=== PATIENT | female | born 1980 | race Caucasian/White ===

== ENCOUNTER 2023-07-07 09:44 | Outpatient (REF) | payer SELFPAY ==
[2023-07-07 11:32] LABS: MANUAL DIFF FLAG NO
[2023-07-07 11:40] LABS: Basophils Percent Auto 0.4 % (0-2); Eosinophils Percent Auto 0.3 % (0-4); Hematocrit 34.5 % (37.0-47.0); Hemoglobin 10.8 g/dl (12.0-16.0); Imm Gran Abs Auto 0.03 X10*3/uL (0.00-0.03); Imm Gran Pct Auto 0.4 % (0.0-0.4); Lymphocytes Absolute Auto 1.3 X10*3/uL (1.2-4.9); Lymphocytes Percent Auto 18.5 % (20-40); Mean Corpuscular HGB Conc 31.3 g/dl (31.0-35.0); Mean Corpuscular Hemoglobin 22.7 pg (27.0-33.0); Mean Corpuscular Volume 72.6 fL (80.0-98.0); Mean Platelet Volume 11.8 fL (9.4-12.3); Monocytes Absolute Auto 0.7 X10*3/uL (0.1-1.2); Monocytes Percent Auto 10.2 % (2-11); Neutrophils Absolute Auto 5.1 x10*3/uL (2.0-8.3); Neutrophils Percent Auto 70.2 % (45-73); Platelet Count 368 X10*3/uL (160-400); Red Blood Count 4.75 X10*6/uL (4.20-5.50); Red Cell Distribution Width 15.6 % (11.0-16.0); White Blood Count 7.3 X10*3/uL (4.8-10.8)
[2023-07-07 12:01] LABS: Alanine Aminotransferase 17 U/L (0-31); Albumin Level 4.1 g/dL (3.5-5.0); Alkaline Phosphatase 79 U/L (39-117); Anion Gap 13 (12-20); Aspartate Amino Transferase 17 U/L (5-31); Bilirubin Direct 0.2 mg/dL (0.0-0.5); Bilirubin Total 0.3 mg/dL (0.0-1.0); Blood Urea Nitrogen 12 mg/dL (9-16); Carbon Dioxide 20 mmol/L (22-29); Chloride 109 mmol/L (96-108); Cholesterol 160 mg/dL (<200); Estimated Glomerular Filt Rate > 60; Glucose Random 93 mg/dL (60-115); HDL Cholesterol 40 mg/dL (>40); LDL Cholesterol Calculated 111 mg/dL (<100); Potassium 3.7 mmol/L (3.3-5.1); Sodium 138 mmol/L (135-145); Triglycerides 49 mg/dL (<150)
[2023-07-07 12:05] LABS: ~HepC Num1 0.15 S/CO (0.00-0.79); ~Hepatitis C Antibody Nonreactive (Nonreactive)
[2023-07-07 12:38] LABS: Ferritin 7 ng/mL (10-250); TSH reflex Free T4 0.69 uIU/mL (0.32-4.0); Vitamin D 25-OH Total 31.1 ng/mL (>30)
[2023-07-07 12:47] LABS: Vitamin B12 414 pg/mL (200-900)
== END 2023-07-07 09:45 | disposition home or self-care (01) ==
LOC: HO.HHCL 09:44
PROVIDERS: Visit Provider Family Medicine
DX: Z11.59 Encounter for screening for other viral diseases (principal); Z13.6 Encounter for screening for cardiovascular disorders; G80.9 Cerebral palsy, unspecified; I47.19 Other supraventricular tachycardia; E55.9 Vitamin D deficiency, unspecified; D50.9 Iron deficiency anemia, unspecified
CPT/HCPCS: 36415; 80048; 80061; 80076; 82306; 82607; 82728; 83735; 84443; 85025; 86803

== ENCOUNTER → 2023-09-21 14:56 | Outpatient (BNVA) | payer OTHER, SELFPAY | PROVIDERS: PCP Family Medicine; Visit Provider Nurse Practitioner ==

== ENCOUNTER 2024-02-16 06:41 | Day surgery (SDC) | payer OTHER, SELFPAY ==
[2024-02-14 11:23] VITALS: BMI 25.3
--- NOTE | 2024-02-15 10:42 | HO.ANESPROP2 ---
HPI - Anesthesia Eval Consult details Narrative: 44yo F for Colonoscopy CP, wheelchair dependant PMFSH Active Problems Active Problems: All Active Problems Family history of polyps in the colon (Acute) Dysmenorrhea (Acute) Atrial tachycardia (Acute) Developmental delay, physiologic (Acute) Cerebral palsy (Acute) Hypertension (Acute) Pre-op examination (Acute) Past Medical History Medical History Wheelchair dependent Atrial tachycardia Developmental delay, physiologic HTN (hypertension) Cerebral palsy Family History Family History Paternal Uncle Colon cancer Family/Other Colon cancer Paternal Uncle Prostate cancer Paternal Aunt Breast cancer Father Adenomatous polyps Brother Polyp of colon Surgical History Surgical History No pertinent past surgical history Social History Social History Are you a primary home health care provider to a significant other at home: No Do you presently have visiting nurse or other home services: Yes (special education case manager/nurse) Alcohol intake: never Patient Tobacco Use Status: Never used Tobacco Meds Allergies Allergy/AdvReac Type Severity Reaction Status Date / Time No Known Allergies Allergy Verified 02/16/24 07:13 [No Known Allergies*] Home Medications ?Medication ?Instructions ?Recorded ?Confirmed ?Last Taken ?Type amlodipine 2.5 mg tablet 2.5 mg PO DAILY 09/21/23 02/16/24 Unknown History cholecalciferol (vitamin D3) 25 25 mcg PO DAILY 09/21/23 02/16/24 Unknown History mcg (1,000 unit) tablet ferrous sulfate 325 mg (65 mg 325 mg PO BID 09/21/23 02/16/24 Unknown History iron) tablet,delayed release lisinopril 10 mg tablet 10 mg PO DAILY 09/21/23 02/16/24 02/16/24 06:30 History Exam Height,Weight and Vital Signs: Height 5 ft 3 in Weight 64.864 kg Assessment and Plan Assessment Anesthesia Assessment: Chart Reviewed
[2024-02-16 07:16] VITALS: BP 138/60; PULSE 127; RESP 16; TEMP 37.3; O2SAT 100
--- NOTE | 2024-02-16 07:35 | HO.ANESPROP2 ---
[facility] Active Problems Active Problems: All Active Problems Family history of polyps in the colon (Acute) Dysmenorrhea (Acute) Atrial tachycardia (Acute) Developmental delay, physiologic (Acute) Cerebral palsy (Acute) Hypertension (Acute) Pre-op examination (Acute) Past Medical History Medical History Wheelchair dependent Atrial tachycardia Developmental delay, physiologic HTN (hypertension) Cerebral palsy Functional capacity: independent ambulation Patient : No Family History Family History Paternal Uncle Colon cancer Family/Other Colon cancer Paternal Uncle Prostate cancer Paternal Aunt Breast cancer Father Adenomatous polyps Brother Polyp of colon Family history of problems with anesthesia: No Surgical History Surgical History No pertinent past surgical history History of Problems with Anesthesia: No Social History Social History Are you a primary career and guidance counselor to a significant other at home: No Do you presently have visiting nurse or other home services: Yes (field case manager/nurse) Alcohol intake: never Patient Tobacco Use Status: Never used Tobacco Use of substances other than those prescribed or required for medical reasons: No Have you been hit, kicked, punched, or otherwise hurt by someone within the past year? If so, by whom?: No Spiritual Healthcare Practices: none Jehovah'S Witness Healthcare Practices: Restorationism Cultural Healthcare Practices: none Are you DNR?: No Advance Directives Information Provided: Yes (as above noted) Advance Directives on File: No Recently lost weight without trying: No Eating poorly because of decreased appetite: No Nutrition Risks: No Nutritional Risk Patient : No FDLMP: 01/21/24 : No Poor oral hygiene: No Meds Allergies Allergy/AdvReac Type Severity Reaction Status Date / Time No Known Allergies Allergy Verified 02/16/24 07:13 [No Known Allergies*] Active Medications: Current Medications Lactated Ringer's (Lr) 1,000 mls @ 100 mls/hr IVCONT .Q10H PRERNA Home Medications ?Medication ?Instructions ?Recorded ?Confirmed ?Last Taken ?Type amlodipine 2.5 mg tablet 2.5 mg PO DAILY 09/21/23 02/16/24 Unknown History cholecalciferol (vitamin D3) 25 25 mcg PO DAILY 09/21/23 02/16/24 Unknown History mcg (1,000 unit) tablet ferrous sulfate 325 mg (65 mg 325 mg PO BID 09/21/23 02/16/24 Unknown History iron) tablet,delayed release lisinopril 10 mg tablet 10 mg PO DAILY 09/21/23 02/16/24 02/16/24 06:30 History Exam Height,Weight and Vital Signs: Height 5 ft 3 in Weight 64.864 kg Last Vital Signs Temp 99.2 F 02/16/24 07:16 Pulse 127 H 02/16/24 07:16 Resp 16 02/16/24 07:16 BP 138/60 02/16/24 07:16 Pulse Ox 100 02/16/24 07:16 O2 Del Method Room Air 02/16/24 07:16 Airway Mallampati Class: I TM Dist: >3cm Neck ROM: Full Heart: RRR Lungs: CTA Assessment and Plan Assessment Anesthesia Assessment: Anesthesia Plan Discussed and Chart Reviewed Final Anesthetic Review Family History of Problems with Anesthesia: No History of Problems with Anesthesia: No NPO: Yes ASA Class: III Final Preanesthetic Review: Meds/Allgs Chart Reviewed, Consent Obtained/Reviewed and Anes Risks/Benef Reviewed Patient Risk: Intermediate Procedure Risk: Low Anesthetic Plan Anesthetic Plan: MAC: Disposition: Standard PACU
[2024-02-16] MEDS: Lactated Ringers 1,000 ML 100 ML IVCONT (07:47)
--- NOTE | 2024-02-16 08:16 | MHC.SHP ---
Pre-Procedural Eval Section A - 24 Hr Update-Section A only Date of Service: 02/16/24 Section B - Complete if H&P > 30 days Chief Complaint: screening Details of Present Illness: P.m. X Cerebral palsy Developmental delay - intelligence of 4 year old Dysmenorrhea Hypertension Dysmenorrhea Family history of colon cancer in her cousin and uncle Atrial tachycardia Allergies: Allergies Allergy/AdvReac Type Severity Reaction Status Date / Time No Known Allergies Allergy Verified 09/21/23 15:11 [No Known Allergies*] Review of Systems Review of Systems Comment: Ten point ROS negative Exam Exam Comment: Gen appear: No acute distress HEENT: no icterus Chest: No overt resp distress Abd: soft, nontender, nondistended Psych: Stable affect, answering questions appropriately Neuro: A/Ox3 noted to move all extremities spontaneously Ext: no peripheral edema Plan Diagnosis/Plan: Unchanged I have reviewed the history and physical and performed a pertinent physical examination on my patient. No changes have occurred unless specified. Consent was obtained from the patient's mother/guardian with the help of a trail construction worker Time Spent With Patient Time: Total time managing care of this patient today ____ minutes.
[2024-02-16 08:38] LABS: HCG Quantitative < 2 mIU/mL
--- NOTE | 2024-02-16 09:24 | P.OPN-COLO_ITS ---
Colonoscopy Operative Note Operative Note Date of Service: 02/16/24 Narrative: Procedure: Colonoscopy Indication: Screening, fam hx of polyps Endoscopist: Courtney Thomas MD Anesthesia Provider: Dr Cassidy Melgar Anesthesia type: MAC Instrument: Olympus [id number]-[id number] Consent: Indication, risks vs benefits, and alternatives were discussed with the patient's guardian (mother) who gave written informed consent to proceed. An electric meter inspector was utilized to assist with the consent. EKG, pulse, pulse oximetry and blood pressure were monitored throughout the procedure. Please see anesthesia flowsheet. Procedure: The patient was brought to the procedure room and placed in the left lateral decubitus position. IV medications were administered by the anesthesia provider in attendance. A digital rectal exam was performed which was normal. A distal attachment cap was affixed to the tip of the colonoscope which was then inserted through the anus and advanced through the colon to the cecum at 85 cm,and terminal ileum. Appendiceal orifice and ileocecal valve were identified. Mucosa was carefully examined under high definition white light as the instrument was slowly withdrawn in a retrograde panoramic fashion. Retroflexion was performed in rectum. The procedure was not difficult. There were no imme diate obvious complications. The quality of the prep was BBPS: 3+3+3 = excellent Withdrawal time 10 minutes. Limitations: No limitations. Findings: Mucosa: Left colon was quite redundant but cecum could be reached easily. Mucosa was normal to cecum and terminal ileum. Protruding lesions: * Medium internal hemorrhoids without stigmata of recent bleeding. Impression: 1. Normal colon and terminal ileum mucosa 2. Internal hemorrhoids Recommendations: - repeat colonoscopy for asymptomatic colorectal cancer screening in 10 years
[2024-02-16 09:25] VITALS: BP 90/40; PULSE 95; RESP 16; TEMP 37; O2SAT 96
[2024-02-16 09:40] VITALS: BP 105/59; PULSE 87; RESP 16; TEMP 36.8; O2SAT 100
--- NOTE | 2024-02-16 11:18 | HO.POSTANES ---
Post Anesthesia Evaluation Post Anesthesia Evaluation Date of Service: 02/16/24 Vital Signs: Vital Signs Temp Pulse Resp BP Pulse Ox O2 Del Method 02/16/24 09:40 98.2 F 87 16 105/59 L 100 Room Air 02/16/24 09:25 98.6 F 95 16 90/40 L 96 Room Air 02/16/24 07:16 99.2 F 127 H 16 138/60 100 Room Air Anesthesia: Monitored Mental Status: Awake Pain Control: Satisfactory Nausea/Vomiting: None Hydration: Adequate Anesthesia-Related Issues: No Anes. Related Issues
== END 2024-02-16 09:58 | disposition home or self-care (01) ==
PROVIDERS: Nurse Practitioner; PCP Family Medicine; Visit Provider Internal Medicine
PROC: 0DJD8ZZ Inspection of Lower Intestinal Tract, Via Natural or Artificial Opening Endoscopic (ICD-10-PCS; CPT 45378; principal; 2024-02-16 08:30)
DX: Z12.11 Encounter for screening for malignant neoplasm of colon (principal); K64.8 Other hemorrhoids; G80.9 Cerebral palsy, unspecified; F81.89 Other developmental disorders of scholastic skills; I10 Essential (primary) hypertension; I47.19 Other supraventricular tachycardia; N94.6 Dysmenorrhea, unspecified; Z99.3 Dependence on wheelchair
CPT/HCPCS: G0121; 36415; 84702; J2003; J2704

== ENCOUNTER → 2024-02-16 06:41 | Outpatient (BNV) | payer OTHER, SELFPAY | PROVIDERS: PCP Family Medicine; Visit Provider Internal Medicine | DX: Z12.11 Encounter for screening for malignant neoplasm of colon (principal); Z83.719 Family history of colon polyps, unspecified; K64.8 Other hemorrhoids | CPT/HCPCS: G0105 ==

== ENCOUNTER 2024-03-01 08:32 | Outpatient (AMB) | payer OTHER, SELFPAY ==
--- NOTE | 2024-03-01 08:42 | A.OFFVIS_ITS ---
Vital Signs 03/01/24 08:46 Height 5 ft 3 in Weight 143 lb BMI 25.3 BP 155/86 H Blood Pressure Location Lt brachial Position Sitting Intake Visit Reasons: s/p colon Intake Note: Patient in office today in follow up of colonoscopy. CC: Patient reports doing well and denies having any GI symptoms today. Land Development Project Manager Required: Yes Accompanied by: Self / Same As Patient Allergies No Known Allergies [No Known Allergies*] Allergy (Verified 03/01/24 09:13) HPI HPI s/p colon: Details: Assessment & Plan (1) Pre-op examination: Code(s): Z01.818 - Encounter for other preprocedural examination Category: Medical (2) Family history of polyps in the colon: Comment: Father Code(s): Z83.719 - Family history of colon polyps, unspecified Category: Medical Plan Mongolian # family member translates per pt request. She is here today with 2 female family members who are supportive. This will be her first colonoscopy. She is naive to anesthesia and sedation. They deny respiratory or cardiac problems. Her father had colon polyps Family history of colon cancer in her cousin and uncle Orders: Orders Colonoscopy - GI Use Only 09/21/23 Medications: New peg 3350-electrolytes 236-22.74-6.74 -5.86 gram (Golytely) until fecal effluent is clear; do not exceed a total volume of 2,000 mL 240 mL PO Q10M 4,000 mL 0RF 1 day Z12.11 - Encounter for screening for malignant neoplasm of colon bisacodyl (Dulcolax (bisacodyl)) 10 mg (2 x 5 mg) PO BEDTIME 4 tabs 0RF 2 days COLONOSCOPY 02/16/24 Findings: Mucosa: Left colon was quite redundant but cecum could be reached easily. Mucosa was normal to cecum and terminal ileum. Protruding lesions: * Medium internal hemorrhoids without stigmata of recent bleeding. Impression: 1. Normal colon and terminal ileum mucosa 2. Internal hemorrhoids Recommendations: - repeat colonoscopy for asymptomatic colorectal cancer screening in 10 years TODAY'S VISIT [place] [employer] The procedure needs to be repeated in 5 years due to the family history of colon polyps. The procedure was well tolerated. The results were explained and the patient is agreeable to the follow-up interval as stated. The bowel pattern has returned to normal. Education was provided to tell any 1st degree relatives about their findings to be sure that they are screened by age 45. Educated that they will be put on a recall list when it is time for their repeat scope but should they move out of state or away from the hospital they will need to remember along with their primary to repeat the procedure in a timely fashion to avoid any adverse complications. [facility] Medical History (Updated 03/01/24 @ 09:22 by LOBO Bryson) Wheelchair dependent Atrial tachycardia Developmental delay, physiologic HTN (hypertension) Cerebral palsy Surgical History (Updated 03/01/24 @ 08:47 by ANSHU Olivier) H/O colonoscopy Family History Paternal Uncle Colon cancer Family/Other Colon cancer Paternal Uncle Prostate cancer Paternal Aunt Breast cancer Father Adenomatous polyps Brother Polyp of colon Social History Are you a primary women's health care nurse practitioner to a significant other at home: No Do you presently have visiting nurse or other home services: Yes (dependency case manager/nurse) Alcohol intake: never Patient Tobacco Use Status: Never used Tobacco Review of Systems Const Denies fatigue, Denies fever(s), Denies night sweats, Denies poor appetite and Denies weight loss Eyes Reports requires corrective lenses ENT Reports Normal hearing present, Denies dental pain, Denies dysphagia, Denies hearing loss, Denies mouth pain, Denies odynophagia, Denies throat swelling, D enies tongue swelling and Reports other (Dentition adequate) GI Details: Denies abdominal pain, Denies melena, Denies bloating, Denies hematochezia, Denies constipation, Denies GI cramping, Denies dysphagia, Denies excessive flatus, Denies early satiety, Denies heartburn, Denies diarrhea, Denies nausea, Denies odynophagia, Denies vomiting and Denies hematemesis Skin/Breast Denies pruritus, Denies lesions, Denies rash and Denies jaundice Neuro Reports Normal hearing present and Denies Abnormal speech present Endo Denies fatigue Aller/Immun Denies throat swelling and Denies tongue swelling Physical Exam Vital Signs: Last Vital Signs BP 155/86 H 03/01/24 08:46 BMI result Body Mass Index 25.3 Const General: cooperative, no acute distress, well developed and well groomed Nutritional Appearance: well nourished and overweight Orientation/consciousness: oriented to person, oriented to place and oriented to time Limitations: language barrier, physical limitations, wheelchair and other limitations HEENT Head: Yes normocephalic and Yes atraumatic Eyes General: appearance normal, both eyes and all related structures Pupils: Equal, round and reactive pupils present Neck Neck: Yes normal visual inspection and Yes no lymphadenopathy Thyroid: Thyroid normal Resp Effort & Inspection: normal respiratory effort and able to speak in complete sentences Auscultation: clear to auscultation bilaterally Cardio Rate: regular rate Rhythm: regular rhythm Heart sounds: Normal, physiologic split S2 sound present Peripheral pulses: radial pulses present and posterior tibial pulses present GI Inspection: No distended and No Abdominal panniculus present Palpation (GI): Soft to palpation, nontender, no guarding, not rigid and No hepatosplenomegaly present Percussion: Yes normal to percussion Auscultation: normal bowel sounds Rectal Exam - Female: deferred Skin General skin exam: no rashes or lesions noted, turgor normal, skin not dry, no jaundice, No spider nevi and no striae Rashes: no rashes Nails: normal Neuro General: oriented to person, oriented to place and oriented to time Cranial nerves: Yes Equal, round and reactive pupils present and Yes Normal hearing present Speech: No Abnormal speech present Extrem General: Yes normal to inspection, No clubbing, No cyanosis and No edema Psych Appearance: grossly normal and well kempt Mental Status: mental status grossly normal Speech and movement: Normal speech and movement present Affect: normal affect Attitude: cooperative Thought process: Normal thought process present and not confabulating Thought content: Normal thought content present Insight: Limited insight present (Psych) Judgement: Limited judgement present (Psych) Assessment & Plan Assessment & Plan (1) Family history of polyps in the colon: Comment: Father 01/2024 scope= negative exam repeat 5 years Code(s): Z83.719 - Family history of colon polyps, unspecified Category: Medical Plan [place] [employer] The procedure needs to be repeated in 5 years due to the family history of colon polyps. The procedure was well tolerated. The results were explained and the patient is agreeable to the follow-up interval as stated. The bowel pattern has returned to normal. Education was provided to tell any 1st degree relatives about their findings to be sure that they are screened by age 45. Educated that they will be put on a recall list when it is time for their repeat scope but should they move out of state or away from the hospital they will need to remember along with their primary to repeat the procedure in a timely fashion to avoid any adverse complications. Coding Level of Care Code Est Pt Level 3 (60338) Diagnoses Family history of polyps in the colon Z83.719
[2024-03-01 08:46] VITALS: BP 155/86; BMI 25.3
== END 2024-03-01 09:14 | disposition home or self-care (01) ==
LOC: HO.HGI 08:33
PROVIDERS: PCP Family Medicine; Visit Provider Nurse Practitioner
DX: Z83.719 Family history of colon polyps, unspecified (principal)
CPT/HCPCS: 99213

== ENCOUNTER → 2024-03-01 08:32 | Outpatient (BNVA) | payer OTHER, SELFPAY | PROVIDERS: PCP Family Medicine; Visit Provider Nurse Practitioner | DX: K64.8 Other hemorrhoids (principal); Z83.719 Family history of colon polyps, unspecified | CPT/HCPCS: 99212 ==

== ENCOUNTER 2024-07-16 09:29 | Outpatient (REF) | payer OTHER, SELFPAY ==
[2024-07-16 11:44] LABS: MANUAL DIFF FLAG NO
[2024-07-16 11:57] LABS: Basophils Percent Auto 0.3 % (0-2); Eosinophils Absolute Auto 0.1 X10*3/uL (0.0-0.4); Eosinophils Percent Auto 0.6 % (0-4); Hematocrit 34.1 % (37.0-47.0); Hemoglobin 10.7 g/dl (12.0-16.0); Imm Gran Abs Auto 0.03 X10*3/uL (0.00-0.03); Imm Gran Pct Auto 0.4 % (0.0-0.4); Lymphocytes Absolute Auto 1.7 X10*3/uL (1.2-4.9); Lymphocytes Percent Auto 21.4 % (20-40); Mean Corpuscular HGB Conc 31.4 g/dl (31.0-35.0); Mean Corpuscular Hemoglobin 23.4 pg (27.0-33.0); Mean Corpuscular Volume 74.6 fL (80.0-98.0); Mean Platelet Volume 12.9 fL (9.4-12.3); Monocytes Absolute Auto 0.9 X10*3/uL (0.1-1.2); Monocytes Percent Auto 11.3 % (2-11); Neutrophils Absolute Auto 5.3 x10*3/uL (2.0-8.3); Platelet Count 391 X10*3/uL (160-400); Red Blood Count 4.57 X10*6/uL (4.20-5.50); Red Cell Distribution Width 16.1 % (11.0-16.0)
[2024-07-16 12:28] LABS: Alanine Aminotransferase 18 U/L (0-31); Albumin Level 4.1 g/dL (3.5-5.0); Alkaline Phosphatase 77 U/L (39-117); Anion Gap 9 (12-20); Aspartate Amino Transferase 22 U/L (5-31); Bilirubin Direct < 0.2 mg/dL (0.0-0.5); Bilirubin Total 0.2 mg/dL (0.0-1.0); Blood Urea Nitrogen 13 mg/dL (9-16); Calcium 8.8 mg/dL (8.4-10.2); Carbon Dioxide 23 mmol/L (22-29); Chloride 109 mmol/L (96-108); Cholesterol 164 mg/dL (<200); Estimated Glomerular Filt Rate > 60; Glucose Random 90 mg/dL (60-115); HDL Cholesterol 39 mg/dL (>40); Iron 13 mcg/dL (30-160); LDL Cholesterol Calculated 110 mg/dL (<100); Percent Iron Saturation 4 % (15-50); Potassium 3.9 mmol/L (3.3-5.1); Sodium 137 mmol/L (135-145); Total Iron Binding Capacity 334 mcg/dL (228-428); Total Protein 7.8 g/dL (6.5-8.0); Triglycerides 79 mg/dL (<150); Unsaturated Iron Binding 321 ug/dL
[2024-07-16 12:31] LABS: Ferritin 5 ng/mL (10-250); TSH reflex Free T4 0.99 uIU/mL (0.32-4.0); Vitamin D 25-OH Total 34.8 ng/mL (>30)
[2024-07-16 12:45] LABS: Folate 14.8 ng/mL (> or = 4.0); Vitamin B12 400 pg/mL (200-900)
== END 2024-07-16 09:30 | disposition home or self-care (01) ==
LOC: HO.HHCL 09:29
PROVIDERS: Visit Provider Family Medicine
DX: E61.1 Iron deficiency (principal); E78.5 Hyperlipidemia, unspecified; I10 Essential (primary) hypertension; E55.9 Vitamin D deficiency, unspecified
CPT/HCPCS: 36415; 80048; 80061; 80076; 82306; 82607; 82728; 82746; 83540; 84443; 85025

== ENCOUNTER 2024-08-29 09:03 | Outpatient (REF) | payer OTHER, SELFPAY ==
--- OUTSIDE RECORDS SUMMARY | 2024-08-29 09:33 | XMS_ITS | Encounter Summary ---
Author Organization [employer] Address [address] [facility] [address] [place] [address] Care Team Providers Care Clean Up Supervisor Name Role Phone Silvia Sanchez MD Primary Care Provider [phone] Juliette Dai CAMP HOUSEKEEPER Unavailable [phone] Encounter Details Date Type Department Care Team (Late st Contact Info) Description 10/31/2023 Orders Only [facility] [address] [place], [place] [id number] Silvia Sanchez MD [address] [place], [place] [phone] Iron deficiency (Primary Dx) Social History Tobacco Use Types Packs/Day Years Used Date Smoking Tobacco: Never Smokeless Tobacco: Never Alcohol Use Standard Drinks/Week Comments Never 0 (1 standard drink = 0.6 oz pur e alcohol) Housing Stability Answer Date Recorded What is your housing situation today? I have bing reaves 06/28/[address] you li ve. Do you have problems with any of the following? None of the above 06/28/2023 Food Insecurity Answer Date Recorded Within the past 12 months, y ou worried that your food would run out before you got money to buy more: Never True 06/28/2023 Within the past 12 months,th e food you bought just didn't last and you didn't have enough money to get more: Never True 08/2023 Transportation Answer Date Recorded In the past 12 months, has l ack of transportation kept you from medical appts, meetings, work or from getting things needed for daily living? No 06/28/2023 Utilities Answer Date Recorded In the past 12 months, has t he electric, gas, oil or water company threatened to shut off services in your home? No 06/28/2023 Comments Unknown Sex and Gender Information Value Date Recorded Sex Assigned at Female 02/22/2022 10:18 AM EDT Legal Sex Female 10:18 AM EDT Gender Identity Female 02/22/2022 10:18 AM EDT Sexual Orientation Straight 02/22/2022 10 :18 AM EDT documented as of this encounter Plan of Treatment Scheduled Orders Name Type Priority Associated Diagnoses Orde r Schedule CBC auto differential Lab Routine Iron deficiency Expected: 10/31/2023, Expires: 10/30/2024 documented as of this encounter Procedures Procedure Name Priority Date/Time Associated Diagnosis Comments IRON AND TOTAL IRON BINDING CAPACITY Routine 07/16/2024 9:37 AM EDT Iron deficiency documented in this encounter Results * (ABNORMAL) Iron And Total Iron Binding Capacity (07/16/2024 9:37 AM EDT) Iron 13(L) 30 - 160 mcg/dL [facility] Total Iron Binding Capacity 334 228 - 428 mcg/dL [facility] Percent Iron Saturation 4(L) 15 - 50 % [facility] Unsaturated Iron Binding 321 ug/dL [facility] Blood Venous blood specimen / Unknown 07/16/2024 9:37 AM EDT 07/16/2024 11:36 AM EDT us Silvia Sanchez MD LAB BLOOD ORDERABLES Final Result Performing Organization Address City/State/RUST Co de Phone Number [facility] [address] [place] [phone] documented in this encounter Visit Diagnoses Diagnosis Iron deficiency- Primary Disorders of iron metabolism documented in this encounter Care Teams Clean Up Supervisor Relationship Specialty Start Date End Date Silvia Sanchez MD [address] [place] [id number] PCP - General Family Medicine 04/25/18 Juliette Dai CNP [address] [facility] [address] [place] [address] Breast Surgery 07/09/24 documented as of this encounter
--- OUTSIDE RECORDS SUMMARY | 2024-08-29 09:33 | XMS_ITS | Encounter Summary ---
Author Organization [employer] Address [address] [facility] [address] [place] [address] Care Team Providers Care Tower Watchman Name Role Phone Silvia Sanchez MD Primary Care Provider [phone] Juliette Dai COTTON CLEANER Unavailable [phone] Encounter Details Date Type Department Care Team (Late st Contact Info) Description 05/27/2022 Abstract [facility] [address] [place] [address] Silvia Sanchez MD [address] [place] [address] Social History Tobacco Use Types Packs/Day Years Used Date Smoking Tobacco: Never Assessed Comments Unknown Sex and Gender Information Value Date Recorded Sex Assigned at Female 02/22/2022 10:18 AM EDT Legal Sex Female 10:18 AM EDT Gender Identity Female 02/22/2022 10:18 AM EDT Sexual Orientation Straight 02/22/2022 10 :18 AM EDT documented as of this encounter Plan of Treatment Not on file documented as of this encounter Procedures Procedure Name Priority Date/Time Associated Diagnosis Comments HPV HIGH RISK PCR Routine 1978 12:00 AM EDT documented in this encounter Results * HPV High Risk PCR (1978 12:00 AM EDT) Swab Cervical swab / Unknown us Historical Provider LAB MICROBIOLOGY - GENERA L ORDERABLES Final Result IMAGING documented in this encounter Visit Diagnoses Not on filedocumented in this encounter Care Teams Tower Watchman Relationship Specialty Start Date End Date Silvia Sanchez MD [address] [place] [address] PCP - General Family Medicine 04/25/18 Juliette Dai CNP [address] [facility] [address] [place] [id number] Breast Surgery 07/09/24 documented as of this encounter
--- OUTSIDE RECORDS SUMMARY | 2024-08-29 09:33 | XMS_ITS | Clinical Summary ---
Author Organization [email or web address] Address [address] [facility] [address] [place] [address] Care Team Providers Care Payroll Auditor Name Role Phone Silvia Sanchez MD Primary Care Provider [phone] Juliette Dai BARREL WASHER MACHINE Unavailable [phone] Allergies No known active allergies Medications amLODIPine (Norvasc) 2.5 MG tabletIndications: Primary hypertension TAKE 1 TABLET BY MOUTH EVERY MORNING 90 tablet 3 4 Active cholecalciferol 25 MCG (1000 UT) tabletIndications: Vitamin D deficiency TAKE 1 TABLET BY MOUTH ONCE DAILY 90 tablet 3 4 Active lisinopril 10 MG tabletIndications: Primary hypertension TAKE 1 TABLET BY MOUTH EVERY MORNING 90 tablet 3 4 Active ferrous sulfate (Fe Tabs) 325 (65 Fe) MG EC tabletIndications: Anemia, unspecified type Take one tab po bid Do not crush, chew, or split. 60 tablet 3 4 Active Bisacodyl EC 5 MG EC tabletIndications: Constipation, unspecified constipation type TAKE 2 TABLETS BY MOUTH EVERY DAY AT BEDTIME FOR 2 DAYS 4 Active PEG [id number]-NaC l-NaSulf (PEG-3350/Electrol ytes) 236 g reconstituted solutionIndication s:Constipation, unspecified constipation type MIX WITH WATER DIRECTED AND DRINK 240 ML BY MOUTH EVERY 10 MINUTES UNTIL FECAL EFFLUENT IS CLEAR, DO NOT EXCEED 2,000 ML (1/2 BOTTLE) 4 Active ferrous sulfate (Fe Tabs) 325 (65 Fe) MG EC tabletIndications: Iron deficiency Take one tab po daily 30 tablet 1 5 Active Active Problems Patient Care Coordination No te Formatting of this note migh t be different from the original. [facility] Crutch Maker: Johana, member services number [phone], provider services line, , option 4 Senior Editor Agency: [employer] Problem Noted Date Diagnosed Date Constipation 07/05/2024 Iron deficiency anemia 07/05/2024 Overview (07/05/2024): Lab Results Component Value Date FERRITIN 7 (L) 07/07/2023 HGB 10.8 (L) 07/07/2023 Coordination of complex care 11/23/2023 Overview (11/23/2023): Pt enrolled in [facility]. Mother: Isadora Devries Manager Technical Sales: Ridleyjose Manjarrez [phone] RN: Laura Barron [phone] Assessment & Plan (07/05/2024 2:30 PM EDT): Pt enrolled in [facility]. Mother: Isadora Devries Manager Technical Sales: Keyana Manjarrez [phone] RN: Laura Barron [phone] Encounter for screening for malignant neoplasm o f breast 07/07/2023 Overview (07/09/2024): Due to inability to get Mammogram due to cerebral palsy, we referred to Breast clinic for recommendation. Seen 08/01/23 at [facility] breast center. Tyrer-Cuzick model 18% which is average risk. Breast exam normal. Options discussed and pt will trial whole breast screening ultrasound. -Breast US normal 11/03/23, filed in media Assessment & Plan (07/05/2024 2:31 PM EDT): Due to inability to get Mammogram due to cerebral palsy, we referred to Breast clinic for recommendation. Seen 08/01/23 at [facility] breast center. Tyrer-Cuzick model 18% which is average risk. Breast exam normal. Options discussed and pt will trial whole breast screening ultrasound. -Breast US normal Assessment & Plan (08/04/2023 10:20 AM EDT): Due to inability to get Mammogram due to cerebral palsy, we referred to Breast clinic for recommendation. Seen 08/01/23 at [facility] breast center. Tyrer-Cuzick model 18% which is average risk. Breast exam normal. Options discussed and pt will trial whole breast screening ultrasound. If normal repeat on annual basis. Assessment & Plan (07/07/2023 9:16 AM EDT): Due to inability to get Mammogram due to cerebral palsy, we will refer to Breast clinic for recommendation 07/07/2023 Colon cancer screening 06/01/2023 Overview (07/05/2024): -colonoscopy with [facility] 02/16/24 normal. Repeat in 4-5 years due to family history of polyps Assessment & Plan (07/05/2024 2:30 PM EDT): -colonoscopy with [facility] 02/16/24 normal. Repeat in 4-5 years due to family history of polyps Assessment & Plan (08/04/2023 10:14 AM EDT): -pt due for screening. - Referral to GI done 07/07/23 -number given on 08/04/23 Assessment & Plan (07/07/2023 9:17 AM EDT): -pt due for screening -Referral to GI done 07/07/23 Other specified health status 02/21/2023 Overview (07/05/2024): -next physical exam due after 07/05/25 -eye care facilitated by [facility] -dental home is [facility] -pt was unable to tolerate pap, denies hx sexual activity -Healthcare proxy paperwork completed by the patient 07/07/23 Assessment & Plan (07/05/2024 2:31 PM EDT): -next physical exam due after 07/05/25 -[facility] -dental home is [facility] -pt was unable to tolerate pap, denies hx sexual activity -Healthcare proxy paperwork completed by the patient 07/07/23 Assessment & Plan (08/04/2023 10:20 AM EDT): -next physical exam due after 07/06/2024 -eye care facilitated by [facility] -dental home is [facility] -pt was unable to tolerate pap, denies hx sexual activity - Healthcare proxy paperwork completed by the patient 07/07/23 Assessment & Plan (07/07/2023 9:18 AM EDT): -next physical exam due after 07/06/2024 -eye care facilitated by [facility] -dental home is [facility] -pt was unable to tolerate pap, denies hx sexual activity - Healthcare proxy paperwork completed by the patient 07/07/23 Essential hypertension 11/03/2021 3 Overview (08/04/2023): -Blood pressure is not at goal -Continue lifestyle modifications -Continue current medications - Advised pt to monitor BP and keep a diary of recordings. Will follow up in two weeks via televisit. -BP is well controlled with current medication Assessment & Plan (07/05/2024 2:30 PM EDT): -Blood pressure is not at goal -Continue lifestyle modifications -Continue current medications - Advised pt to monitor BP and keep a diary of recordings. Will follow up in two weeks via televisit. -BP is well controlled with current medication Assessment & Plan (08/04/2023 10:19 AM EDT): -Blood pressure is not at goal -Continue lifestyle modifications -Continue current medications - Advised pt to monitor BP and keep a diary of recordings. Will follow up in two weeks via televisit. -BP is well controlled with current medication Assessment & Plan (07/07/2023 9:46 AM EDT): -Blood pressure is not at goal -Continue lifestyle modifications -Continue current medications - Advised pt to monitor BP and keep a diary of recordings. Will follow up in two weeks via televisit. Iron deficiency 11/03/2021 02/21/2023 Overview (07/16/2024): Lab Results Component Value Date FERRITIN 5 (L) 07/16/2024 FERRITIN 7 (L) 07/07/2023 HGB 10.7 (L) 07/16/2024 HGB 10.8 (L) 07/07/2023 -ferrous sulfate restarted 07/16/24 Vitamin D deficiency 11/03/2021 02/21/2023 Overview (07/05/2024): Lab Results Component Value Date [id number] 31.1 07/07/2023 Assessment & Plan (07/05/2024 2:30 PM EDT): Lab Results Component Value Date [id number] 31.1 07/07/2023 Cerebral palsy 12/07/2012 02/21/2023 Overview (08/04/2023): -she is wheelchair bound Assessment & Plan (07/05/2024 2:30 PM EDT): -she is wheelchair bound Assessment & Plan (08/04/2023 10:19 AM EDT): -she is wheelchair bound Developmental delay 12/07/2012 02/21/2023 Dysmenorrhea 12/07/2012 02/21/2023 Overview (07/07/2023): -Improved -Will continue to monitor Assessment & Plan (08/04/2023 10:20 AM EDT): -Improved -Will continue to monitor Assessment & Plan (07/07/2023 9:17 AM EDT): -Improved -Will continue to monitor Tooth disorder 12/07/2012 02/21/2023 Wheelchair bound 12/07/2012 02/21/2023 Encounters Date Type Department Care Team Description 07/23/2024 Abstract [facility] [place] [address] Silvia Sanchez MD 07/17/20[address] [facility] [place] [address] Silvia Sanchez MD Results 07/16/[address] [address] Silvia Sanchez MD 07/16/2024 Orders Only [address] [address] Silvia Sanchez MD Iron deficiency (Primary Dx) 07/16/2024 Abstract [address] [place] [address] Silvia Sanchez MD 07/05/2024 10:30 AM EDT Office Visit [address] [address] Silvia Sanchez MD Essential hypertension (Primary Dx); Cerebral palsy, unspecified type (CMS/HCC); Constipation, unspecified constipation type; Iron deficiency anemia, unspecified iron deficiency anemia type; Colon cancer screening; Encounter for breast cancer screening using non-mammogram modality; Coordination of complex care; Other specified health status; Dyslipidemia; Iron deficiency; Vitamin D deficiency 07/05/2024 [address] [place] [address] Silvia Sanchez MD 07/05/2024 Travel 06/25/2024 Patient Outreach [address] [address] Silvia Sanchez MD Pre-visit Planning (SDOH Screening negative and Tobacco screening negative) from Last 3 Months Immunizations Name Administration Dates Next Due Hep B, adult 01/12/2024,08/11/2023,07/07/2023 Influenza injectable quadriv alent IIV4 with preservative 01/04/2019,01/26/2018,05/20/2017 Influenza injectable quadriv alent preservative free 02/19/2020 Influenza, IIV3, injectable 05/24/2008,01/10/200 6 Influenza, Split (incl. gretchen fied surface antigen) 07/02/2013 Influenza, seasonal, injecta ble, preservative free 01/12/2024 Pneumococcal Polysaccharide PPSV23 05/20/2017,,07/16/2005 Tdap 07/07/2023,12/07/2012 Family History Medical History Relation Name Comments Colon cancer Cousin Diabetes Mother Hypertension Mother heart problems Mother Relation Name Status Comments Cousin Alive Mother Social History Tobacco Use Types Packs/Day Years Used Date Smoking Tobacco: Never Smokeless Tobacco: Never Tobacco Cessation:Counseling Given: Not Answered Alcohol Use Standard Drinks/Week Comments Never 0 [...] off services in your home? No 06/28/2023 Internet Access Answer Date Recorded Internet Access Q1 Yes 06/25/2024 Internet Access Q2 Not on file 06/25/2024 Comments Unknown Sex and Gender Information Value Date Recorded Sex Assigned at Female 02/22/2022 10:18 AM EDT Legal Sex Female 10:18 AM EDT Gender Identity Female 02/22/2022 10:18 AM EDT Sexual Orientation Straight 02/22/2022 10 :18 AM EDT Last Filed Vital Signs Vital Sign Reading Time Taken Comments Blood Pressure 121/79 07/05/2024 10:21 AM EDT Pulse 79 07/05/2024 10:21 AM EDT Temperature 36.6 ??C (97.8 ??F) 07/05/2024 10:21 AM E DT Respiratory Rate 16 07/05/2024 10:21 AM EDT Oxygen Saturation 98% 07/05/2024 10:21 AM EDT Inhaled Oxygen Concentration - - Weight 54.4 kg (120 lb) 07/05/2024 10:21 AM EDT Height - - Body Mass Index - - Plan of Treatment Health Maintenance Due Date Last Done Comments CT Colonography 1978 Depression Screening 1978 FIT DNA/Cologuard 1978 FIT 1978 FOBT 1978 Sigmoidoscopy 1978 Pap Smear 1999 Cervical Cancer Screening 07/22/2022 HPV/Cotest 07/22/2022 07/22/2017, 06/25, 1978 SDOH Screening 06/25/2025 06/25/2024 Tobacco Screening 06/25/2025 06/25/2024 Alcohol/Substance Use Screening 07/05/2025 07/05/2024 COVID-19 Vaccine ( - 2023- season) 2025 Postponed from 12/25/2023 (Patient Refused) Family Planning (PISQ) 07/05/2025 07/05/2024 Mammogram 07/23/2026 07/23/2024, 07/16/2024 Zoster Vaccines (1 of 2) 02/13/2028 Colonoscopy 02/15/2029 02/16/2024 Colorectal Cancer Screening 02/15/2029 Lipid Panel 07/16/2029 07/16/2024, 07/07/2023 DTaP/Tdap/Td Vaccines (3 - Td or Tdap) 07/06/2033 07/07/2023, 12/07/2012 RSV Patients and Patients Aged 60 years or older (1 - 1-dose 75+ series) 2053 HIV Screening Completed 12/20/2016 Pneumococcal Vaccine: Pediatrics (0 to 5 Years) and At-Risk Patients (6 to 49) Years) Aged Out 05/20/2017, 10/02/2015, 07/16/2005 No longer eligible based on patient's age to complete this topic Hepatitis C Screening Completed 07/07/2023 Hepatitis B Vaccines Completed 01/12/2024, 08/11/2023, 07/07/2023 Influenza Vaccine Completed 01/12/2024, , 01/04/2019, Additional history exists HIB Vaccines Aged Out No longer eligi ble based on patient's age to complete this topic HPV Vaccines Aged Out No longer eligi ble based on patient's age to complete this topic Hepatitis A Vaccines Aged Out No long er eligible based on patient's age to complete this topic IPV Vaccines Aged Out No longer eligi ble based on patient's age to complete this topic Meningococcal Vaccine Aged Out No rima kaykay eligible based on patient's age to complete this topic RSV under 20 months Aged Out No longe r eligible based on patient's age to complete this topic Rotavirus Vaccines Aged Out No longer eligible based on patient's age to complete this topic Procedures Procedure Name Priority Date/Time Associated Diagnosis Comments MAMMOGRAPHY Routine 07/23/2024 9:08 AM EDT MAMMOGRAPHY Routine 07/16/2024 1:39 PM EDT VITAMIN D,25-OH,TOTAL,IA Routine 07/16/2024 9:37 AM EDT Vitamin D deficiency BASIC METABOLIC PANEL Routine 07/16/2024 9:37 AM EDT Essential hypertension LIPID PANEL, STANDARD Routine 07/16/2024 9:37 AM EDT Dyslipidemia HEPATIC FUNCTION PANEL Routine 07/16/2024 9:37 AM EDT Dyslipidemia VITAMIN B12/FOLATE, SERUM PANEL Routine 07/16/2024 9:37 AM EDT Iron deficiency anemia, unspecified iron deficiency anemia type TSH W/REFLEX TO FT4 Routine 07/16/2024 9 :37 AM EDT Essential hypertension FERRITIN Routine 07/16/2024 9:37 AM EDT Iron deficiency anemia, unspecified iron deficiency anemia type IRON AND TOTAL IRON BINDING CAPACITY Routine 07/16/2024 9:37 AM EDT Iron deficiency CBC WITH AUTO DIFFERENTIAL Routine 07/16/2024 9:37 AM EDT Iron deficiency COLONOSCOPY Routine 02/16/2024 HEPATITIS C AB W/REFL TO HCV RNA, QN, PCR Routine 07/07/2023 9:48 AM EDT Encounter for hepatitis C screening test for low risk patient ZZZ HISTORICAL HPV E6/E7 RFLX GEOVANY 16 18/45 Routine 07/22/2017 9:48 AM EDT HIV 1/2 ANTIGEN AND ANTIBODY Routine 12/20/2016 from Last 3 Months or Most Recently Relevant to Health Maintenance Results * Mammography (07/23/2024 9:08 AM EDT) Only the most recent of2 resultswithin the time period is included. Mammogram BIRADS 1 Normal, Abnormal, BIRADS 1 , BIRADS 2 Comment:routine mammographic screening Anatomical Region Laterality Modality Other us Historical Provider MD HEALTH MAINTENANCE Final Result * Vitamin D, 25-Hydroxy, Total, Immunoassay (07/16/2024 9:37 AM EDT) Vitamin D 25-OH Total 34.8 >30 ng/mL [facility] Comment: Health Based Reference Values*< 20 ??ng/mL ??Wdkdpngtw35-19 ng/mL ??Insufficient> 30 ??ng/mL ??Sufficient*Radha BOOTHE. N Engl J Med. 2007;357:266-280There is no well-established upper level of normal vitamin Dlevels. Some laboratories use 50 ng/mL as an upper limit ofnormal. However, toxicity is patient-dependent and may occurat any level. Careful correlation with the patient'spresentation is necessary and, if there is concern forvitamin D toxicity, treatment should be consideredirrespective of the serum level.Care must be taken in interpreting Vitamin D results fromdifferent laboratories and methodologies. ??Published datademonstrated that results from patients undergoinghemodialysis may show a negative bias when tested withvarious automated 25-OH vitamin D assays when compared toLC- MS/MS.When testing samples from patients whose predominant form ofVitamin D is Vitamin D2, such as patients receiving VitaminD2 supplementation, results that are subtherapeutic shouldbe confirmed with another method such as LC-MS/MS. Blood 07/16/2024 9:37 AM EDT 07/16/2024 11:36 AM EDT Silvia Sanchez MD LAB BLOOD ORDERABLES Final Result Performing Organization Address [facility]/ZIP Co de Phone Number [facility] [address] [place] [address] [phone] * Vitamin B12 (Cobalamin) and Folate Panel, Serum (07/16/2024 9:37 AM EDT) Vitamin B12 400 200 - 900 pg/mL [facility] Comment:NORMAL 200-900 PG/ML INDETERMINATE 160-199 PG/ML DEFICIENT < 160 PG/ML Folate 14.8 > or = 4.0 ng/mL [facility] Comment:Reference Values:> o r = 4.0 ng/mL< 4.0 ng/mL suggests folate deficiency Methotrexate, aminopterin and folinic acid(leucovorin) are chemotherapeutic agents whose molecularstructures are similar to folate; therefore, the Architectfolate assay cannot be used for patients using these drugs. Blood Venous blood specimen / Unknown 07/16/2024 9:37 AM EDT 07/16/2024 11:36 AM EDT Silvia Sanchez MD LAB BLOOD ORDERABLES Final Result Performing Organization Address [facility] Co de Phone Number [facility] [address] [place] [address] [phone] * TSH with Reflex to Free T4 (07/16/2024 9:37 AM EDT) TSH reflex Free T4 0.99 0.32 - 4.0 uIU/mL [facility] Blood Venous blood specimen / Unknown 07/16/2024 9:37 AM EDT 07/16/2024 11:36 AM EDT Silvia Sanchez MD LAB BLOOD ORDERABLES Final Result [facility] [address] [place] [phone] * (ABNORMAL) CBC auto differential (07/16/2024 9:37 AM EDT) White Blood Count 8.0 4.8 - 10.8 X10*3/uL [facility] Red Blood Count 4.57 4.20 - 5.50 X10*6/uL [facility] Hemoglobin 10.7(L) 12.0 - 16.0 g/dl [facility] Hematocrit 34.1(L) 37.0 - 47.0 % [facility] Mean Corpuscular Volume 74.6(L) 80.0 - 98.0 fL [facility] Mean Corpuscular Hemoglobin 23.4(L) 27.0 - 33.0 pg [facility] Mean Corpuscular HGB Conc 31.4 31.0 - 35.0 g/dl [facility] Red Cell Distribution Width 16.1(H) 11.0 - 16.0 % [facility] Platelet Count 391 160 - 400 X10*3/uL [facility] Mean Platelet Volume 12.9(H) 9.4 - 12.3 fL [facility] Neutrophils Percent Auto 66.0 45 - 73 % [facility] Imm Gran Pct Auto 0.4 0.0 - 0.4 % [facility] Lymphocytes Percent Auto 21.4 20 - 40 % [facility] Monocytes Percent Auto 11.3(H) 2 - 11 % [facility] Eosinophils Percent Auto 0.6 0 - 4 % [facility] Basophils Percent Auto 0.3 0 - 2 % [facility] NRBC Pct Auto 0.0 0.0 - 0.2 /100WBC [facility] Neutrophils Absolute Auto 5.3 2.0 - 8.3 x10*3/uL [facility] Imm Gran Abs Auto 0.03 0.00 - 0.03 X10*3/uL [facility] Lymphocytes Absolute Auto 1.7 1.2 - 4.9 X10*3/uL [facility] Monocytes Absolute Auto 0.9 0.1 - 1.2 X10*3/uL [facility] Eosinophils Absolute Auto 0.1 0.0 - 0.4 X10*3/uL [facility] Basophils Absolute Auto 0.0 0.0 - 0.2 X10*3/uL [facility] NRBC Abs Auto 0.000 0.0 - 0.012 X10*3/uL [facility] Blood Venous blood specimen / Unknown 07/16/2024 9:37 AM EDT 07/16/2024 11:36 AM EDT Silvia Sanchez MD LAB BLOOD ORDERABLES Final Result Performing Organization Address [facility]/ZIP Co de Phone Number [facility] [address] [place] [phone] * (ABNORMAL) Iron And Total Iron Binding Capacity (07/16/2024 9:37 AM EDT) Iron 13(L) 30 - 160 mcg/dL [facility] Total Iron Binding Capacity 334 228 - 428 mcg/dL [facility] Percent Iron Saturation 4(L) 15 - 50 % [facility] Unsaturated Iron Binding 321 ug/dL [facility] Blood Venous blood specimen / Unknown 07/16/2024 9:37 AM EDT 07/16/2024 11:36 AM EDT Silvia Sanchez MD LAB BLOOD ORDERABLES Final Result Performing Organization Address [facility]/ZIP Co de Phone Number [facility] [address] [place] [phone] * (ABNORMAL) Ferritin (07/16/2024 9:37 AM EDT) Pathologist [facility] Ferritin 5(L) 10 - 250 ng/mL [facility] Blood Venous blood specimen / Unknown 07/16/2024 9:37 AM EDT 07/16/2024 11:36 AM EDT Silvia Sanchez MD LAB BLOOD ORDERABLES Final Result Performing Organization Address City/[facility]/ZIP Co de Phone Number [facility] [address] [place] [phone] * Hepatic Function Panel (07/16/2024 9:37 AM EDT) Pathologist [facility] Bilirubin, Total 0.2 0.0 - 1.0 mg/dL [facility] Bilirubin, Direct <0.2 0.0 - 0.5 mg/dL [facility] Aspartate Amino Transferase 22 5 - 31 U/L [facility] Alanine Aminotransferase 18 0 - 31 U/L [facility] Total Protein 7.8 6.5 - 8.0 g/dL [facility] Albumin Level 4.1 3.5 - 5.0 g/dL [facility] Alkaline Phosphatase 77 39 - 117 U/L [facility] Blood Venous blood specimen / Unknown 07/16/2024 9:37 AM EDT 07/16/2024 11:36 AM EDT Silvia Sanchez MD LAB BLOOD ORDERABLES Final Result [facility] [address] [place] [phone] * (ABNORMAL) Lipid Panel, Standard (07/16/2024 9:37 AM EDT) Pathologist [facility] Triglycerides 79 <150 mg/dL [facility] Comment:Desirable Triglyceri de: less than 150 mg/dLBorderline High Triglyceride 150-199 mg/dLHigh Triglyceride: 200-499 mg/dLVery High Triglyceride: greater than or equal to 5OO mg/dL Cholesterol 164 <200 mg/dL [facility] Comment:Desirable Cholestero l: less than 200 mg/dLBorderline High Cholesterol: 200-239 mg/dLHigh Cholesterol: greater than 239 mg/dL LDL Cholesterol Calculated 110(H) <100 mg/dL [facility] Comment:Desirable LDL: less than 100 mg/dLNear Optimal/Above Optimal LDL: 110- 129 mg/dLBorderline High LDL: 130-159 mg/dLHigh LDL: 160-189 mg/dLVery High LDL: greater than or equal to 190 mg/dL HDL Cholesterol 39(L) >40 mg/dL [facility] Comment:Desirable HDL: great er than 40 mg/dL Note: This HDL assay may give artificially low results in patients with liver disease. Blood Venous blood specimen / Unknown 07/16/2024 9:37 AM EDT 07/16/2024 11:36 AM EDT us Silvia Sanchez MD LAB BLOOD ORDERABLES Final Result [facility] [address] [place] [phone] * (ABNORMAL) Basic Metabolic Panel (07/16/2024 9:37 AM EDT) Sodium 137 135 - 145 mmol/L [facility] Potassium 3.9 3.3 - 5.1 mmol/L [facility] Chloride 109(H) 96 - 108 mmol/L [facility] Carbon Dioxide 23 22 - 29 mmol/L [facility] Anion Gap 9(L) 12 - 20 [facility] Urea Nitrogen (BUN) 13 9 - 16 mg/dL [facility] Creatinine, Serum 0.65 0.5 - 1.4 mg/dL [facility] Estimated Glomerular Filt Rate >60 [facility] Comment:Chronic Kidney Disea se: Estimated GFR < 60 mL/min/[id number] Kidney Disease: Estimated GFR < 15 mL/min/1.73m2 Glucose 90 60 - 115 mg/dL [facility] Calcium 8.8 8.4 - 10.2 mg/dL [facility] Blood Venous blood specimen / Unknown 07/16/2024 9:37 AM EDT 07/16/2024 11:36 AM EDT Silvia Sanchez MD LAB BLOOD ORDERABLES Final Result Performing Organization Address [facility] Co de Phone Number [facility] [address] [place] [phone] * Hm Colonoscopy (02/16/2024) Colonoscopy Normal Normal Comment:With Dr. Courtney Thomas [facility] Provider HEALTH MAINTENANCE Final Result * Hepatitis C Antibody with Reflex to HCV, RNA, Quantitative, Real-Time PCR (07/07/2023 9:48 AM EDT) Hepatitis C Antibody Nonreactive Nonreactive [facility] Comment:Antibodies to HCV no t detected; does not exclude early acuteHCV infection. Blood Venous blood specimen / Unknown 07/07/2023 9:48 AM EDT 07/07/2023 11:28 AM EDT Silvia Sanchez MD LAB BLOOD ORDERABLES Final Result Performing Organization Address [facility] Co de Phone Number [facility] [address] [place] [phone] * HPV E6/E7 RFLX GEOVANY 16 18/45 (07/22/2017 9:48 AM EDT) HPV 18/45 RNA Test not performed [facility] ADDITIONAL TESTING Not indicated () [facility] Comment: Test Performed by [employer], Nereus [employer] [facility], [address] [place] [address] Markus Franco M.D., Ph.D., Director of Laboratories , [place] [id number] HPV 16 RNA Test not performed [facility] HPV mRNA E6/E7 Not Detected NOT DETECTED [facility] Comment: This test was performed using the APTIMA(R) HPV Assay ([employer] This assay detects E6/E7 viral messenger RNA (mRNA) from 14 high-risk HPV types (16,18,31,33,35,39,45,51, 52,56,58,59,66,68). For additional information please refer to: [email or web address].[email or web address]/LUR398p9 (This link is being provided for informational/ educational purposes only.) Please note: ??Effective 01/05/2016, HPV testing will be performed using [employer]'s APTIMA test which targets mRNA. Detecting mRNA instead of DNA, as in older methods, offers significant improvements in specificity. 07/22/2017 9:48 AM EDT Silvia Sanchez MD HISTORICAL/NON ORDERABLE L ABS Final Result [facility] [address] * HIV 1/2 Antigen and Antibody (12/20/2016) Pathologist [facility] HIV Ag/Ab Nonreactive Historical Provider HEALTH MAINTENANCE Final Result from Last 3 Months or Most Recently Relevant to Health Maintenance Insurance [facility] < [address] [place] [id number] 41 [facility] [place] Advance Directives Documents on File Type Date Recorded Patient Laboratory Inspector Expl anation Advance Directives and Living Will 07/08/2023 Health Care Proxy 07/07/23 Care Teams Payroll Auditor Relationship Specialty Start Date End Date Belton, MD Silvia [address] [place] [address] PCP - General Family Medicine 04/25/18 Juliette Dai BARREL WASHER MACHINE [address] [place] [id number] Breast Surgery 07/09/24
[2024-08-29 10:59] LABS: MANUAL DIFF FLAG NO
[2024-08-29 11:12] LABS: Basophils Percent Auto 0.4 % (0-2); Eosinophils Absolute Auto 0.1 X10*3/uL (0.0-0.4); Eosinophils Percent Auto 0.9 % (0-4); Hematocrit 36.3 % (37.0-47.0); Hemoglobin 11.2 g/dl (12.0-16.0); Imm Gran Abs Auto 0.02 X10*3/uL (0.00-0.03); Imm Gran Pct Auto 0.3 % (0.0-0.4); Lymphocytes Absolute Auto 1.7 X10*3/uL (1.2-4.9); Lymphocytes Percent Auto 21.4 % (20-40); Mean Corpuscular HGB Conc 30.9 g/dl (31.0-35.0); Mean Corpuscular Hemoglobin 23.5 pg (27.0-33.0); Mean Corpuscular Volume 76.3 fL (80.0-98.0); Mean Platelet Volume 12.6 fL (9.4-12.3); Monocytes Absolute Auto 0.7 X10*3/uL (0.1-1.2); Monocytes Percent Auto 8.5 % (2-11); Neutrophils Absolute Auto 5.5 x10*3/uL (2.0-8.3); Neutrophils Percent Auto 68.5 % (45-73); Platelet Count 292 X10*3/uL (160-400); Red Blood Count 4.76 X10*6/uL (4.20-5.50)
[2024-08-29 11:49] LABS: Iron 21 mcg/dL (30-160); Percent Iron Saturation 7 % (15-50); Total Iron Binding Capacity 306 mcg/dL (228-428); Unsaturated Iron Binding 285 ug/dL
[2024-08-29 12:04] LABS: Ferritin 7 ng/mL (10-250)
== END 2024-08-29 09:04 | disposition home or self-care (01) ==
LOC: HO.HHCL 09:03
PROVIDERS: Visit Provider Family Medicine
DX: D50.9 Iron deficiency anemia, unspecified (principal)
CPT/HCPCS: 36415; 82728; 83540; 85025

== ENCOUNTER → 2024-10-03 09:43 | Outpatient (BNV) | payer OTHER, SELFPAY | PROVIDERS: PCP Family Medicine; Referring Provider Family Medicine; Visit Provider Internal Medicine | DX: D50.0 Iron deficiency anemia secondary to blood loss (chronic) (principal) | CPT/HCPCS: 99204; G2211 ==

== ENCOUNTER 2025-01-18 11:26 | Outpatient (REF) | payer OTHER, SELFPAY ==
--- OUTSIDE RECORDS SUMMARY | 2025-01-18 11:00 | XMS_ITS | Encounter Summary ---
Author Organization [employer] Address [address] [place] [address] 7t [place] [address] Care Team Providers Care Temporary Receptionist Name Role Phone Silvia Sanchez MD Primary Care Provider [phone] Juliette Dai CNP Unavailable Shannon Lomeli MD Unavailable [phone] Reason for Referral * Consultation (Routine) - Authorized Specialty Diagnoses / Procedures Referred By Contac t Referred To Contact Obstetrics and Gynecology Diagnoses Abnormal uterine bleeding Cerebral palsy, unspecified type (CMS/HCC) Iron deficiency Silvia Sanchez MD [address] [place] [address] Phone: tel: fax: [facility] Referral ID Status Reason Start Date Expiration Date Visits Requested Visits Authorized [id number] Authorized Specialty Services Required 01/18/2025 01/18/2026 1 1 Reason for Visit * Reason Comments Annual Exam Encounter Details Date Type Department Care Team (Late st Contact Info) Description 01/18/2025 11:00 AM EDT Office Visit [facility] [address] [place] [address] [phone] Silvia Sanchez MD [address] [place] [address] [phone] Abnormal uterine bleeding (Primary Dx); Cerebral palsy, unspecified type (CMS/HCC); Essential hypertension; Iron deficiency; Vitamin D deficiency; Coordination of complex care; Encounter for immunization Social History Tobacco Use Types Packs/Day Years Used Date Smoking Tobacco: Never Smokeless Tobacco: Never Alcohol Use Standard Drinks/Week Comments Never 0 (1 standard drink = 0.6 oz pur e alcohol) Depression Answer Date Recorded Patient Health Questionnaire-9 Score 0 01/18/2025 Patient Health Questionnaire-9 Score 0 01/18/2025 Last PHQ-9: Questionnaire Data Not on file 0 01/18/2025 Housing Stability Answer Date Recorded What is [...] off services in your home? No 06/28/2023 Depression Answer Date Recorded Patient Health Questionnaire-2 Score 0 01/18/2025 Internet Access Answer Date Recorded Internet Access Q1 Yes 06/25/2024 Internet Access Q2 Not on file 06/25/2024 Comments Unknown Sex and Gender Information Value Date Recorded Sex Assigned at Female 02/22/2022 10:18 AM EDT Legal Sex Female 10:18 AM EDT Gender Identity Female 02/22/2022 10:18 AM EDT Sexual Orientation Straight 02/22/2022 10 :18 AM EDT documented as of this encounter Last Filed Vital Signs Vital Sign Reading Time Taken Comments Blood Pressure 138/90 01/18/2025 11:07 AM EDT Pulse 97 01/18/2025 10:42 AM EDT Temperature 37.2 C (98.9 F) 01/18/2025 10:42 AM EDT Respiratory Rate 20 01/18/2025 10:42 AM EDT Oxygen Saturation 98% 01/18/2025 10:42 AM EDT Inhaled Oxygen Concentration - - Weight 74.4 kg (164 lb) 01/18/2025 11:07 AM EDT Height - - Body Mass Index - - documented in this encounter Functional Status * Over the past 2 weeks, how often have you been bothered by any of the following problems? Question Answer Date of Assessment Author Patient Health Questionnaire-2 Score 0 12/25 10:56 AM Karla Harris MA * Little interest or pleasure in doing things Answer Date of Assessment Author Not at all 01/18/2025 10:56 AM Kamron Harris MA * Feeling down, depressed, or hopeless Answer Date of Assessment Author Not at all 01/18/2025 10:56 AM Kamron Harris MA * Trouble falling or staying asleep, or sleeping too much Answer Date of Assessment Author Not at all 01/18/2025 10:56 AM Kamron Harris MA * Feeling tired or having little energy Answer Date of Assessment Author Not at all 01/18/2025 10:56 AM Kamron Harris MA * Poor appetite or overeating Answer Date of Assessment Author Not at all 01/18/2025 10:56 AM Kamron Harris MA * Feeling bad about yourself - or that you are a failure or have let yourself or your family down Answer Date of Assessment Author Not at all 01/18/2025 10:56 AM Kamron Harris MA * Trouble concentrating on things, such as reading the newspaper or watching television Answer Date of Assessment Author Not at all 01/18/2025 10:56 AM Kamron Harris MA * Moving or speaking so slowly that other people could have noticed? Or the opposite - being so fidgety or restless that you have been moving around a lot more than usual. Answer Date of Assessment Author Not at all 01/18/2025 10:56 AM Kamron Harris MA * Thoughts that you would be better off or hurting yourself in some way Answer Date of Assessment Author Not at all 01/18/2025 10:56 AM Kamron Harris MA * Patient Health Questionnaire-9 Score Answer Date of Assessment Author 0 01/18/2025 10:56 AM Kamron Harris MA * Over the last 2 weeks, how often have you been bothered by any of the following problems? Question Answer Date of Assessment Author Feeling nervous, anxious, or on edge 0 12/25 10:56 AM Karla Harris MA Not being able to stop or co ntrol worrying 0 01/18/2025 10:56 AM Karla Harris M A Worrying too much about diff erent things 0 01/18/2025 10:56 AM Karla Harris M A Trouble relaxing 0 01/18/2025 10:56 AM Karla Harris MA Being so restless that it is hard to sit still 0 01/18/2025 10:56 AM Karla Harris M A Becoming easily annoyed or irritable 0 12/25 10:56 AM Karla Harris MA Feeling afraid as if somethi ng awful might happen 0 01/18/2025 10:56 AM Karla Harris M A WAYLON-7 Total Score 0 01/18/2025 10:56 AM Karla Harris MA documented as of this encounter Progress Notes * Silvia Sanchez MD - 01/18/2025 11:00 AM EDT Subjective Patient ID: Magdaleno Devries is a 44 y.o. female with past medical history of Cerebral palsy, Dysmenorrhea, hypertension, Iron deficiency and vitamin D deficiency who presents for follow-up chronic conditions. Pt reports doing well. She agrees to get her flu shot today. Pt reports she started her period today and has had heavy bleeding and has been anemic in the past from it. She has since stopped seeing her reimbursement manager due to her blood levels being good, but continues to have heavy menstrual cycles. Wants intervention, will place referral to UROLOGY TEACHER. Review of Systems Constitutional: Negative for fever and unexpected weight change. Respiratory: Negative for shortness of breath. Cardiovascular: Negative for chest pain. Gastrointestinal: Negative for abdominal pain. Genitourinary: Negative for difficulty urinating. Musculoskeletal: Negative for back pain. Objective Visit Vitals BP (!) 138/90 Pulse 97 Temp 98.9 ??F (37.2 ??C) (Oral) Resp 20 There is no height or weight on file to calculate BMI. Physical Exam Constitutional: Appearance: Normal appearance. Cardiovascular: Rate and Rhythm: Normal rate and regular rhythm. Heart sounds: Normal heart sounds. Pulmonary: Effort: Pulmonary effort is normal. Breath sounds: Normal breath sounds. Chest: Breasts: Isidoro Score is 5. Breasts are symmetrical. Right: Normal. No inverted nipple, mass, nipple discharge or skin change. Left: Normal. No inverted nipple, mass, nipple discharge or skin change. Abdominal: General: Abdomen is flat. Palpations: Abdomen is soft. There is no mass. Tenderness: There is no abdominal tenderness. Musculoskeletal: Cervical back: Normal range of motion and neck supple. Lymphadenopathy: Upper Body: Right upper body: No supraclavicular or axillary adenopathy. Left upper body: No supraclavicular or axillary adenopathy. Neurological: General: No focal deficit present. Mental Status: She is alert. Psychiatric: Behavior: Behavior normal. Assessment & Plan Abnormal uterine bleeding History of heavy menstrual cycles, with previous episodes causing anemia. -referred to UROLOGY TEACHER for intervention 01/18/25 Orders: Referral to Obstetrics / Gynecology; Future Cerebral palsy, unspecified type (CMS/HCC) -she is wheelchair bound Orders: Referral to Obstetrics / Gynecology; Future Essential hypertension -Blood pressure is slightly above goal, encouraged monitoring BP 01/18/25 -Continue lifestyle modifications -Continue current medications Iron deficiency Lab Results Component Value Date FERRITIN 7 (L) 08/29/2024 FERRITIN 5 (L) 07/16/2024 HGB 11.2 (L) 08/29/2024 HGB 10.7 (L) 07/16/2024 -ferrous sulfate restarted 07/16/24 -iron remains low despite PO iron, referral to hematology placed 08/30/24 -seen by reimbursement manager, Dr. Padilla 10/03/24 She is now on oral iron supplementation which she is tolerating very well. Her anemia has resolved. She was advised to continue with oral iron once a day andincrease it to twice a day when her periods become heavy. -note from Dr. Padilla 01/07/25 reviewed. No changes. -ordered repeat iron panel 01/18/25 Orders: Referral to Obstetrics / Gynecology; Future CBC auto differential; Future Ferritin; Future TSH with Reflex to Free T4; Future Iron And Total Iron Binding Capacity; Future Vitamin B12 (Cobalamin) and Folate Panel, Serum; Future Vitamin D deficiency Lab Results Component Value Date [id number] 34.8 07/16/2024 [id number] Coordination of complex care Pt enrolled in [facility]. Mother: Isadora Devries Security Patrol Officer: Keyana Manjarrez [phone] RN: Laura Barron [phone] Follow up in about 6 months (around 07/18/2025) for hematology and UROLOGY TEACHER. . I, Rosangela Miller, am serving as a scribe to document services personally performed by Dr. Villasenor, based on the patient's response to questions by provider and providers statements to me. documented in this encounter Miscellaneous Notes * Assessment & Plan Note - Silvia Sanchez MD - 01/18/2025 11:00 AM EDT Associated Problem(s): Cerebral palsy (CMS/HCC) -she is wheelchair bound Orders: Referral to Obstetrics / Gynecology; Future * Assessment & Plan Note - Silvia Sanchez MD - 01/18/2025 11:00 AM EDT Associated Problem(s): Essential hypertension -Blood pressure is slightly above goal, encouraged monitoring BP 01/18/25 -Continue lifestyle modifications -Continue current medications * Assessment & Plan Note - Silvia Sanchez MD - 01/18/2025 11:00 AM EDT Associated Problem(s): Iron deficiency Lab Results Component Value Date FERRITIN 7 (L) 08/29/2024 FERRITIN 5 (L) 07/16/2024 HGB 11.2 (L) 08/29/2024 HGB 10.7 (L) 07/16/2024 -ferrous sulfate restarted 07/16/24 -iron remains low despite PO iron, referral to hematology placed 08/30/24 -seen by reimbursement manager, Dr. Padilla 10/03/24 She is now on oral iron supplementation which she is tolerating very well. Her anemia has resolved. She was advised to continue with oral iron once a day andincrease it to twice a day when her periods become heavy. -note from Dr. Padilla 01/07/25 reviewed. No changes. -ordered repeat iron panel 01/18/25 Orders: Referral to Obstetrics / Gynecology; Future CBC auto differential; Future Ferritin; Future TSH with Reflex to Free T4; Future Iron And Total Iron Binding Capacity; Future Vitamin B12 (Cobalamin) and Folate Panel, Serum; Future * Assessment & Plan Note - Silvia Sanchez MD - 01/18/2025 11:00 AM EDT Associated Problem(s): Coordination of complex care Pt enrolled in [facility]. Mother: Isadora Devries Security Patrol Officer: Keyana Manjarrez [phone] RN: Laura Barron [phone] * Assessment & Plan Note - Silvia Sanchez MD - 01/18/2025 11:00 AM EDT Associated Problem(s): Vitamin D deficiency Lab Results Component Value Date [id number] 34.8 07/16/2024 [id number] * Assessment & Plan Note - Silvia Sanchez MD - 01/18/2025 11:00 AM EDT Associated Problem(s): Abnormal uterine bleeding History of heavy menstrual cycles, with previous episodes causing anemia. -referred to UROLOGY TEACHER for intervention 01/18/25 Orders: Referral to Obstetrics / Gynecology; Future documented in this encounter Plan of Treatment Scheduled Orders Name Type Priority Associated Diagnoses Orde r Schedule CBC auto differential Lab Routine Iron deficiency Expected: 01/18/2025 (Approximate), Expires: 01/18/2026 Ferritin Lab Routine Iron deficiency Expected: 01/18/2025, Expires: 01/18/2026 TSH with Reflex to Free T4 Lab Routine Iron deficiency Expected: 01/18/2025 (Approximate), Expires: 01/18/2026 Iron And Total Iron Binding Capacity Lab Routine Iron deficiency Expected: 01/18/2025, Expires: 01/18/2026 Vitamin B12 (Cobalamin) and Folate Panel, Serum Lab Routine Iron deficiency Expected: 01/18/2025, Expires: 01/18/2026 Scheduled Referrals Name Type Priority Associated Diagnoses Orde r Schedule Referral to Obstetrics / Gynecology Outpatient Referral Routine Abnormal uterine bleeding Cerebral palsy, unspecified type (CMS/HCC) Iron deficiency Expected: 01/18/2025 (Approximate), Expires: 01/18/2026 documented as of this encounter Visit Diagnoses Diagnosis Abnormal uterine bleeding- Primary Unspecified disorder of menstruation and other abnormal bleeding from female genital tract Cerebral palsy, unspecified type (CMS/HCC) Essential hypertension Unspecified essential hypertension Iron deficiency Disorders of iron metabolism Vitamin D deficiency Coordination of complex care Encounter for immunization documented in this encounter Additional Health Concerns Assessment Noted Time PHQ-9 Depression Total Score: 0 01/19/20 10:56 AM EDT documented as of this encounter Care Teams Temporary Receptionist Relationship Specialty Start Date End Date Silvia Sanchez MD [address] [place] [address] PCP - General Family Medicine 04/25/18 Juliette Dai CNP [address] [facility] [address] [place] [address] Breast Surgery 07/09/24 Shannon Lomeli MD [address] [place] [address] Hematology and Oncology 10/04/24 documented as of this encounter
[2025-01-18 13:04] LABS: MANUAL DIFF FLAG NO
--- OUTSIDE RECORDS SUMMARY | 2025-01-18 13:17 | XMS_ITS | Encounter Summary ---
Author Organization [employer] Address [address] [facility] 7t [place] [address] Care Team Providers Care Heavy Coil Winder Name Role Phone Silvia Sanchez MD Primary Care Provider [phone] Juliette Dai CNP Unavailable Shannon Lomeli MD Unavailable [phone] Encounter Details Date Type Department Care Team (Latest Contact Info) Description 01/18/2025 Travel Social History Tobacco Use Types Packs/Day Years [...] the past 12 months, has t he [employer], [employer], oil or water [employer] threatened to shut off services in your [...] AM EDT documented as of this encounter Functional Status * Over the [...] A Trouble relaxing 0 01/18/2025 10:56 AM NANCYT Karla Gonzalez MA Being so restless that it is hard to sit still 0 01/18/2025 10:56 AM Karla Harris M A Becoming easily annoyed or irritable 0 12/25 10:56 AM Karla Harris MA Feeling afraid as if somethi ng awful might happen 0 01/18/2025 10:56 AM Karla Harris M A WAYLON-7 Total Score 0 01/18/2025 10:56 AM Karla Harris MA documented as of this encounter Plan of Treatment Not on file documented as of this encounter Visit Diagnoses Not on filedocumented in this encounter Additional Health Concerns Assessment Noted Time PHQ-9 Depression Total Score: 0 01/19/20 25 10:56 AM EDT documented as of this encounter Care Teams Heavy Coil Winder Relationship Specialty Start Date End Date Silvia Sanchez MD [address] [place] [address] PCP - General Family Medicine 04/25/18 Juliette Dai, PROJECT MANAGER FINANCE [address] [place] [address] Breast Surgery 07/09/24 Shannon Lomeli MD [address] [place] [address] Hematology and Oncology 10/04/24 documented as of this encounter
--- OUTSIDE RECORDS SUMMARY | 2025-01-18 13:17 | XMS_ITS | Encounter Summary ---
Author Organization [employer] Address [address] [facility] 7t [place] [address] Care Team Providers Care Carburetor Repairer Name Role Phone Silvia Sanchez MD Primary Care Provider [phone] Juliette Dai CNP Unavailable [phone] Shannon Lomeli MD Unavailable [phone] Encounter Details Date Type Department Care Team (Late st Contact Info) Description 10/31/2023 Orders Only [facility] [address] [place], [place] [phone] Silvia Sanchez MD [address] [place], [place] [phone] Iron deficiency (Primary Dx) Social History Tobacco [...] EDT) Iron 13(L) 30 - 160 mcg/dL [facility] Total Iron Binding Capacity 334 228 - 428 mcg/dL [facility] Percent Iron Saturation 4(L) 15 - 50 % [facility] Unsaturated Iron Binding 321 ug/dL [facility] Blood Venous blood specimen / Unknown 07/16/2024 9:37 AM EDT 07/16/2024 11:36 AM EDT us Silvia Sanchez MD LAB BLOOD ORDERABLES Final Result [facility] [address] [place] [phone] documented in this encounter Visit Diagnoses Diagnosis Iron deficiency- Primary Disorders of iron metabolism documented in this encounter Care Teams Carburetor Repairer Relationship Specialty Start Date End Date Silvia Sanchez MD [address] [place] [id number] PCP - General Family Medicine 04/25/18 Juliette Dai CNP [address]rd [place] [address] Breast Surgery 07/09/24 Shannon Lomeli MD [address] [place] [address] Hematology and Oncology 10/04/24 documented as of this encounter
--- OUTSIDE RECORDS SUMMARY | 2025-01-18 13:17 | XMS_ITS | Encounter Summary ---
Author Organization [employer] Address [address] [facility] 7t [place] [address] Care Team Providers Care Jig Box Operator Name Role Phone Silvia Sanchez MD Primary Care Provider [phone] Juliette Dai CNP Unavailable [phone] Shannon Lomeli MD Unavailable [phone] Encounter Details Date Type Department Care Team (Late st Contact Info) Description 05/27/2022 Abstract [facility] [address] [place], [place] [phone] Silvia Sanchez MD [address] [place], [place] [phone] Social History Tobacco Use Types Packs/Day Years [...] on filedocumented in this encounter Care Teams Jig Box Operator Relationship Specialty Start Date End Date Silvia Sanchez MD [address] [place] [address] PCP - General Family Medicine 04/25/18 Juliette Dai CNP [address] [facility] [address] [place] [address] Breast Surgery 07/09/24 Shannon Lomeli MD [address] [place] [address] Hematology and Oncology 10/04/24 documented as of this encounter
--- OUTSIDE RECORDS SUMMARY | 2025-01-18 13:17 | XMS_ITS | Clinical Summary ---
Author Organization [email or web address] Address [address] [facility] [address] [place] [address] Care Team Providers Care Regulatory Attorney Name Role Phone Silvia Sanchez MD Primary Care Provider [phone] Juliette Dai CNP Unavailable [phone] Shannon Lomeli MD Unavailable [phone] Allergies No known active allergies Medications ferrous sulfate (Fe Tabs) 325 (65 Fe) MG EC tabletIndications: Anemia, unspecified type Take one tab po bid Do not crush, chew, or split. 60 tablet 3 4 Active Bisacodyl EC 5 MG EC tabletIndications: Constipation, unspecified constipation type TAKE 2 TABLETS BY MOUTH EVERY DAY AT BEDTIME FOR 2 DAYS 4 Active PEG 6614-MMv-BfEci-NaC l-NaSulf (PEG-3350/Electrol ytes) 236 g reconstituted solutionIndication s:Constipation, unspecified constipation type MIX WITH WATER DIRECTED AND DRINK 240 ML BY MOUTH EVERY 10 MINUTES UNTIL FECAL EFFLUENT IS CLEAR, DO NOT EXCEED 2,000 ML (1/2 BOTTLE) 4 Active cholecalciferol (Vitamin D-3) 25 MCG (1000 UT) tabletIndications: Vitamin D deficiency TAKE 1 TABLET BY MOUTH ONCE DAILY 90 tablet 3 5 Active amLODIPine (Norvasc) 2.5 MG tabletIndications: Primary hypertension Take 1 tablet (2.5 mg) by mouth in the morning. 90 tablet 3 5 Active lisinopril 10 MG tabletIndications: Primary hypertension Take 1 tablet (10 mg) by mouth in the morning. 90 tablet 3 5 Active ferrous sulfate 325 (65 Fe) MG EC tabletIndications: Iron deficiency TAKE 1 TABLET BY MOUTH EVERY DAY 30 tablet 1 5 Active Active Problems Patient Care Coordination No te Formatting of this note migh t be different from the original. [facility] Hoisting Laborer: Johana, member services number [phone], provider services line, , option 4 [employer] Agency: [employer] Problem Noted Date Diagnosed Date Abnormal uterine bleeding 01/18/2025 Overview (01/18/2025): History of heavy menstrual cycles, with previous episodes causing anemia. -referred to MYSQL DEVELOPER for intervention 01/18/25 Assessment & Plan (01/18/2025 11:49 AM EDT): History of heavy menstrual cycles, with previous episodes causing anemia. -referred to MYSQL DEVELOPER for intervention 01/18/25 Orders: Referral to Obstetrics / Gynecology; Future Constipation 07/05/2024 Coordination of complex care 11/23/2023 Overview (11/23/2023): Pt enrolled in [facility]. Mother: Isadora Devries Customer Support Representative: Keyana Manjarrez [phone] RN: Laura Barron [phone] Assessment & Plan (01/18/2025 11:49 AM EDT): Pt enrolled in [facility]. Mother: Isadora Devries Customer Support Representative: Keyana Manjarrez [phone] RN: Laura Barron [phone] Assessment & Plan (07/05/2024 2:30 PM EDT): Pt enrolled in [facility]. Mother: Isadora Devries Customer Support Representative: Keyana Manjarrez [phone] RN: Laura Barron [phone] Encounter for screening for malignant neoplasm o f breast 07/07/2023 Overview (07/09/2024): Due to inability to get Mammogram due to cerebral palsy, we referred to Breast clinic for recommendation. Seen 08/01/23 at [facility]. Tyrer-Cuzick model 18% which is average risk. Breast exam normal. Options discussed and pt will trial whole breast screening ultrasound. -Breast US normal 11/03/23, filed in media Assessment & Plan (07/05/2024 2:31 PM EDT): Due to inability to get Mammogram due to cerebral palsy, we referred to Breast clinic for recommendation. Seen 08/01/23 at [facility] breast center. Tyrer-Cuzick model 18% which is average risk. Breast exam normal. Options discussed and pt will trial whole breast screening ultrasound. -Breast US normal Assessment & Plan (08/04/2023 10:20 AM EDT): Due to inability to get Mammogram due to cerebral palsy, we referred to Breast clinic for recommendation. Seen 08/01/23 at [facility] breast center. Tyrer-Cuzick model 18% which is average risk. Breast exam normal. Options discussed and pt will trial whole breast screening ultrasound. If normal repeat on annual basis. Assessment & Plan (07/07/2023 9:16 AM EDT): Due to inability to get Mammogram due to cerebral palsy, we will refer to Breast clinic for recommendation 07/07/2023 Colon cancer screening 06/01/2023 Overview (07/05/2024): -colonoscopy with [facility] 02/16/24 normal. Repeat in 4-5 years due to family history of polyps Assessment & Plan (07/05/2024 2:30 PM EDT): -colonoscopy with [facility] 02/16/24 normal. Repeat in 4-5 years [...] due after 07/05/25 -eye care facilitated by [facility] -dental home is [facility] -pt was unable to tolerate pap, denies hx sexual activity -Healthcare proxy paperwork completed by the patient 07/07/23 Assessment & Plan (07/05/2024 2:31 PM EDT): -next physical exam due after 07/05/25 -eye care facilitated by [facility] -dental home is [facility] -pt was unable to tolerate pap, denies hx sexual activity -Healthcare proxy paperwork completed by the patient 07/07/23 Assessment & Plan (08/04/2023 10:20 AM EDT): -next physical exam due after 07/06/2024 -eye care facilitated by [facility] -dental home is [facility] -pt was unable to tolerate pap, denies hx sexual activity - Healthcare proxy paperwork completed by the patient 07/07/23 Assessment & Plan (07/07/2023 9:18 AM EDT): -next physical exam due after 07/06/2024 -eye care facilitated by [facility] -dental home is [facility] -pt was unable to tolerate pap, denies hx sexual activity - Healthcare proxy paperwork completed by the patient 07/07/23 Essential hypertension 11/03/2021 Overview (01/18/2025): -Blood pressure is slightly above goal, encouraged monitoring BP 01/18/25 -Continue lifestyle modifications -Continue current medications Assessment & Plan (01/18/2025 11:49 AM EDT): -Blood pressure is slightly above goal, encouraged monitoring BP 01/18/25 -Continue lifestyle modifications -Continue current medications Assessment & Plan (07/05/2024 2:30 PM EDT): [...] via televisit. Iron deficiency 11/03/2021 02/21/2023 Overview (01/18/2025): Lab Results Component Value Date FERRITIN 7 (L) 08/29/2024 FERRITIN 5 (L) 07/16/2024 HGB 11.2 (L) 08/29/2024 HGB 10.7 (L) 07/16/2024 -ferrous sulfate restarted 07/16/24 -iron remains low despite PO iron, referral to hematology placed 08/30/24 -seen by cultured marble products maker, Dr. Padilla 10/03/24 She is now on oral iron supplementation which she is tolerating very well. Her anemia has resolved. She was advised to continue with oral iron once a day and increase it to twice a day when her periods become heavy. -note from Dr. Padilla 01/07/25 reviewed. No changes. -ordered repeat iron panel 01/18/25 Assessment & Plan (01/18/2025 11:49 AM EDT): Lab Results Component Value Date FERRITIN 7 (L) 08/29/2024 FERRITIN 5 (L) 07/16/2024 HGB 11.2 (L) 08/29/2024 HGB 10.7 (L) 07/16/2024 -ferrous sulfate restarted 07/16/24 -iron remains low despite PO iron, referral to hematology placed 08/30/24 -seen by cultured marble products maker, Dr. Padilla 10/03/24 She is now on oral iron supplementation which she is tolerating very well. Her anemia has resolved. She was advised to continue with oral iron once a day and increase it to twice a day when her periods become heavy. -note from Dr. Padilla 01/07/25 reviewed. No changes. -ordered repeat iron panel 01/18/25 Orders: Referral to Obstetrics / Gynecology; Future CBC auto differential; Future Ferritin; Future TSH with Reflex to Free T4; Future Iron And Total Iron Binding Capacity; Future Vitamin B12 (Cobalamin) and Folate Panel, Serum; Future Vitamin D deficiency 11/03/2021 02/21/2023 Overview (01/18/2025): Lab Results Component Value Date [id number] 34.8 07/16/2024 [id number] 31.1 07/07/2023 Assessment & Plan (01/18/2025 11:49 AM EDT): Lab Results Component Value Date [id number] 34.8 07/16/2024 [id number] Assessment & Plan (07/05/2024 2:30 PM EDT): Lab Results Component Value Date [id number] 31.1 07/07/2023 Cerebral palsy 12/07/2012 02/21/2023 Overview (08/04/2023): -she is wheelchair bound Assessment & Plan (01/18/2025 11:49 AM EDT): -she is wheelchair bound Orders: Referral to Obstetrics / Gynecology; Future Assessment & Plan (07/05/2024 2:30 PM EDT): [...] disorder 12/07/2012 02/21/2023 Wheelchair bound 12/07/2012 02/21/2023 Resolved Problems Problem Noted Date Diagnosed Date Resolved Date Iron deficiency anemia 07/05/202401/18 Overview (07/05/2024): Lab Results Component Value Date FERRITIN 7 (L) 07/07/2023 HGB 10.8 (L) 07/07/2023 Encounters Date Type Department Care Team Description 01/18/2025 11:00 AM EDT Office Visit [facility] [address] [place] [address] [phone] Silvia Sanchez MD Abnormal uterine bleeding (Primary Dx); Cerebral palsy, unspecified type (CMS/HCC); Essential hypertension; Iron deficiency; Vitamin D deficiency; Coordination of complex care; Encounter for immunization 01/18/2025 Travel 01/11/2025 Patient Outreach [facility] [address] [place] [phone] Silvia Sanchez MD Pre-visit Planning (Pre visit planning unable to LVM ) 10/31/2024 Refill [facility] [address] [place] [address] [phone] Silvia Sanchez MD Iron deficiency 10/23/[address] [phone] Silvia Sanchez MD december Recalls 10/23/2024 Travel from Last 3 Months Immunizations Immunization Administration Dates Next Due Hep B, adult 01/12/2024,08/11/2023,07/07/2023 Influenza injectable quadriv alent IIV4 with preservative 01/04/2019,01/26/2018,05/20/2017 Influenza injectable quadriv alent preservative free 02/19/2020 Influenza, IIV3, injectable 05/24/2008, 6 Influenza, Split (incl. gretchen fied surface antigen) 07/02/2013 Influenza, seasonal, injecta ble, preservative free 01/18/2025,01/12/2024 Pneumococcal Polysaccharide PPSV23 05/20/2017,,07/16/2005 Tdap 07/07/2023,12/07/2012 Family [...] Q2 Not on file 06/25/2024 Comments Unknown Intention Date Recorded No desire to become (finding) 0 07/05/2024 Sex and Gender Information Value Date Recorded [...] Date Last Done Comments CT Colonography 1978 FIT DNA/Cologuard 1978 FIT 1978 FOBT 1978 Sigmoidoscopy 1978 Pap Smear 1999 Cervical Cancer Screening 07/22/2022 HPV/Cotest 07/22/2022 07/22/2017, 06/25, 1978 COVID-19 Vaccine ( season) 2024 SDOH Screening 06/25/2025 06/25/2024 Alcohol/Substance Use Screening 07/05/2025 07/05/2024 Family Planning (PISQ) 07/05/2025 07/05/2024 Depression Screening 01/18/2026 01/18/2025, 01/19/20 25 Disability Screening 01/18/2026 01/18/2025 Tobacco Screening 01/18/2026 01/18/2025 Mammogram 07/23/2026 07/23/2024, 07/16/2024 Zoster Vaccines (1 [...] Years) and At-Risk Patients (6 to 49) Years Aged Out 05/20/2017, 10/02/2015, 07/16/2005 No longer eligible based on patient's age to complete this topic Hepatitis C Screening Completed 07/07/2023 Hepatitis B Vaccines Completed 01/12/2024, 08/11/2023, 07/07/2023 Influenza Vaccine Completed 01/18/2025, , 02/19/2020, Additional history exists HIB Vaccines Aged Out [...] patient's age to complete this topic Meningococcal B Vaccine Aged Out No l onger eligible based on patient's age to complete [...] Comments MAMMOGRAPHY Routine 07/23/2024 9:08 AM EDT LIPID PANEL, STANDARD Routine 07/16/2024 9:37 AM EDT Dyslipidemia COLONOSCOPY Routine 02/16/2024 HEPATITIS C AB W/REFL [...] Results * Mammography (07/23/2024 9:08 AM EDT) Mammogram BIRADS 1 Normal, Abnormal, BIRADS 1 , BIRADS 2 Comment:routine mammographic screening Anatomical Region Laterality Modality Other Historical Provider HEALTH MAINTENANCE Final Result * (ABNORMAL) Lipid Panel, Standard (07/16/2024 9:37 AM EDT) Triglycerides 79 <150 mg/dL [facility] Comment:Desirable Triglyceri de: less than 150 mg/dLBorderline High Triglyceride 150-199 mg/dLHigh Triglyceride: 200-499 mg/dLVery High Triglyceride: greater than or equal to 5OO mg/dL Cholesterol 164 <200 mg/dL [facility] Comment:Desirable Cholestero l: less than 200 mg/dLBorderline High Cholesterol: 200-239 mg/dLHigh Cholesterol: greater than 239 mg/dL LDL Cholesterol Calculated 110(H) <100 mg/dL [facility] Comment:Desirable LDL: less than 100 mg/dLNear Optimal/Above Optimal LDL: 110- 129 mg/dLBorderline High LDL: 130-159 mg/dLHigh LDL: 160-189 mg/dLVery High LDL: greater than or equal to 190 mg/dL HDL Cholesterol 39(L) >40 mg/dL [facility] Comment:Desirable HDL: great er than 40 mg/dL Note: This HDL assay may give artificially low results in patients with liver disease. Blood Venous blood specimen / Unknown 07/16/2024 9:37 AM EDT 07/16/2024 11:36 AM EDT Silvia Sanchez MD LAB BLOOD ORDERABLES Final Result [facility] [address] [place] [phone] [phone] * Hm Colonoscopy (02/16/2024) Colonoscopy Normal Normal Comment:With Dr. Courtney Thomas Nenita Merchant MD HEALTH MAINTENANCE Final Result * Hepatitis C Antibody with Reflex to HCV, RNA, Quantitative, Real-Time PCR (07/07/2023 9:48 AM EDT) Hepatitis C Antibody Nonreactive Nonreactive [facility] Comment:Antibodies to HCV no t detected; does not exclude early acuteHCV infection. Blood Venous blood specimen / Unknown 07/07/2023 9:48 AM EDT 07/07/2023 11:28 AM EDT Silvia Sanchez MD LAB BLOOD ORDERABLES Final Result Performing Organization Address [facility] Co de Phone Number [facility] [address] [place] [phone] * HPV E6/E7 RFLX GEOVANY 16 18/45 (07/22/2017 9:48 AM EDT) [facility] HPV 18/45 RNA Test not performed [facility] ADDITIONAL TESTING Not indicated () [facility] Comment: Test Performed by [facility], [address] [place] [address] Markus Franco M.D., Ph.D., Director of Laboratories , [place] [id number] HPV 16 RNA Test not performed [facility] HPV mRNA E6/E7 Not Detected NOT DETECTED [facility] Comment: This test was performed using the APTIMA(R) HPV Assay ([employer] This assay detects E6/E7 viral messenger RNA (mRNA) from 14 high-risk HPV types (16,18,31,33,35,39,45,51, 52,56,58,59,66,68). For additional information please refer to: http://education.Xetawave/faq/UDT986m1 (This link is being provided for informational/ educational purposes only.) Please note: Effective 01/05/2016, HPV testing will be performed using [employer]'s APTIMA test which targets mRNA. Detecting mRNA instead of DNA, as in older methods, offers significant improvements in specificity. 07/22/2017 9:48 AM EDT Silvia Sanchez MD HISTORICAL/NON ORDERABLE L ABS Final Result [facility] [address] * HIV 1/2 Antigen and Antibody (12/20/2016) Pathologist [facility] HIV Ag/Ab Nonreactive Historical Provider HEALTH MAINTENANCE Final Result from Last 3 Months or Most Recently Relevant to Health Maintenance Insurance [facility] ONE CARE < 65 [place] [employer] [id number] Advance Directives Documents on File Type Date Recorded Patient Outside Sales Professional Expl anation Advance Directives and Living Will 07/08/2023 Health Care Proxy 07/07/23 Care Teams Regulatory Attorney Relationship Specialty Start Date End Date Silvia Sanchez MD [address] [place] [address] PCP - General Family Medicine 04/25/18 Juleitte Dai CNP [address] [facility] 3rd [place] [address] Breast Surgery 07/09/24 Shannon Lomeli MD [address] [place] [phone] Hematology and Oncology 10/04/24
[2025-01-18 13:34] LABS: Hematocrit 40.3 % (37.0-47.0); Hemoglobin 13.0 g/dl (12.0-16.0); Imm Gran Abs Auto 0.03 X10*3/uL (0.00-0.03); Imm Gran Pct Auto 0.4 % (0.0-0.4); Lymphocytes Absolute Auto 1.8 X10*3/uL (1.2-4.9); Mean Corpuscular HGB Conc 32.3 g/dl (31.0-35.0); Mean Corpuscular Hemoglobin 26.9 pg (27.0-33.0); Mean Corpuscular Volume 83.3 fL (80.0-98.0); NRBC Abs Auto 0.000 X10*3/uL (0.0-0.012); NRBC Pct Auto 0.0 /100WBC (0.0-0.2); Platelet Count 354 X10*3/uL (160-400); Red Blood Count 4.84 X10*6/uL (4.20-5.50); White Blood Count 7.4 X10*3/uL (4.8-10.8)
[2025-01-18 14:14] LABS: Iron 46 mcg/dL (30-160); Percent Iron Saturation 18 % (15-50); Total Iron Binding Capacity 253 mcg/dL (228-428); Unsaturated Iron Binding 207 ug/dL
[2025-01-18 14:19] LABS: Ferritin 28 ng/mL (10-250)
[2025-01-18 14:45] LABS: Folate 17.2 ng/mL (> or = 4.0); Vitamin B12 434 pg/mL (200-900)
== END 2025-01-18 11:27 | disposition home or self-care (01) ==
LOC: HO.HHCL 11:26
PROVIDERS: PCP Family Medicine; Visit Provider Family Medicine
DX: E61.1 Iron deficiency (principal); E11.29 Type 2 diabetes mellitus with other diabetic kidney complication
CPT/HCPCS: 36415; 82607; 82728; 82746; 83540; 84443; 85025